=== PATIENT | female | born 1960 | race Caucasian/White ===

== ENCOUNTER 2016-09-22 06:45 | Day surgery (SDC) | payer BC ==
[~2016-09-22] VITALS: Ht 162.6 cm; Wt 71.2 kg
[~2016-09-22 06:45] MED LIST: AUGMENTIN 875 M1 TAB PO; CLARITIN 1010 MG/TAB; CLARITIN 1010 MG/TAB PO; COLACE 100100 MG/CAP; DUO-KAPS1 CAP; LORTAB 5/500 501 TAB PO; MVI; NOLVADEX20 MG PO; PROTONIX 40MG T40 MG PO
[2016-09-22 07:18] VITALS: BP 86/67; PULSE 78; TEMP 97.6
[2016-09-22] MEDS ORDERED: PRAVACHOL10 MG PO (07:34)
[2016-09-22] MEDS ORDERED: COLACE 100100 MG/CAP PO (07:36)
[2016-09-22 09:01] VITALS: BP 99/62; PULSE 67; TEMP 97.6
[2016-09-22 09:15] VITALS: BP 86/56; PULSE 68
[2016-09-22 09:30] VITALS: BP 98/63; PULSE 62
[2016-09-22 09:45] VITALS: BP 100/63; PULSE 59
[2016-09-22 11:22] VITALS: BP 91/51; PULSE 65
== END 2016-09-22 10:00 | disposition home or self-care (01) ==
LOC: SDCO 06:45
DX: Z12.11 Encounter for screening for malignant neoplasm of colon (principal); K21.9 Gastro-esophageal reflux disease without esophagitis
CPT/HCPCS: J2250; J3010; J7030

== ENCOUNTER 2017-01-25 14:59 | Emergency (ER) | payer BC ==
[~2017-01-25] VITALS: Ht 162.6 cm; Wt 61.4 kg
[~2017-01-25 14:59] MED LIST changes: +COLACE 100100 MG/CAP PO; +PRAVACHOL10 MG PO
[2017-01-25 15:02] VITALS: TEMP 97.9
[2017-01-25 15:59] LABS: BASO % 0.2 % (0.0-2.0); EOS % 0.5 % (0-4.0); GRAN # 4.7 (1.4-6.5); GRAN % 72.8 % (42.2-75.2); HEMATOCRIT 40.8 % (37.0-47.0); HEMOGLOBIN 13.7 g/dl (12.5-16.0); LYMPH # 1.3 (1.2-3.4); LYMPH % 19.8 % (20.0-51.0); MEAN CELL VOLUME 98 fl (80.0-100.0); MEAN CORPUSCULAR HEMOGLOBIN 33 pg (27.0-31.0); MEAN CORPUSCULAR HGB CONC 34 g/dl (33.0-37.0); MEAN PLATELET VOLUME 10.4 fl (7.4-10.4); MONO # 0.4 (0.1-0.6); MONO % 6.5 % (1.7-9.3); PLATELET COUNT 195 K/mm3 (130-400); RED BLOOD COUNT 4.16 M/mm3 (4.10-5.30); WHITE BLOOD COUNT 6.5 K/mm3 (4.8-10.8)
[2017-01-25 16:08] LABS: COLLECTION METHOD CLEAN CATCH
[2017-01-25 16:23] LABS: MUCOUS Present /lpf; PH 6 (5-8); SQUAMOUS EPITHELIAL None Seen /hpf; URINE APPEARANCE Clear; URINE BACTERIA None Seen /hpf; URINE BILIRUBIN Negative (NEGATIVE); URINE BLOOD Negative (NEGATIVE); URINE COLOR Yellow; URINE GLUCOSE Negative (NEGATIVE); URINE KETONE 2+ (NEGATIVE); URINE LEUKOCYTE ESTERASE Negative (NEGATIVE); URINE PROTEIN(semi-quant) Negative (NEGATIVE); URINE RBC 0-2 /hpf; URINE UROBILINOGEN Negative (NEGATIVE); URINE WBC 0-2 /hpf
[2017-01-25 16:36] LABS: ADJUSTED CALCIUM 9.1 mg/dL (8.4-10.2); ALANINE AMINOTRANSFERASE 26 U/L (9-52); ALBUMIN 4.2 gm/dL (3.5-5.0); ALKALINE PHOSPHATASE 74 U/L (50-136); ANION GAP 13 mmol/L (7-16); BILIRUBIN,TOTAL 0.6 mg/dL (0.0-1.0); BLOOD UREA NITROGEN 10 mg/dL (7-17); CALCIUM 9.3 mg/dL (8.4-10.2); CARBON DIOXIDE 20 mmol/L (22-30); CHLORIDE 106 mmol/L (98-107); CREATININE, serum 0.59 mg/dL (0.52-1.25); GLUCOSE 113 mg/dL (74-106); LIPASE 57 U/L (23-300); POTASSIUM 3.4 mmol/L (3.4-5.0); SODIUM 139 mmol/L (137-145); TOTAL PROTEIN 7.1 gm/dL (6.4-8.2)
[2017-01-25 16:39] LABS: C-REACTIVE PROTEIN < 0.5 mg/dL (0.0-0.9)
[2017-01-25 16:45] LABS: TROPONIN-I < 0.012 ng/mL (0.000-0.034)
[2017-01-25] MEDS ORDERED: PROTONIX 40MG T40 MG PO (17:03)
[2017-01-25 17:25] VITALS: BP 115/68; PULSE 76
== END 2017-01-25 17:25 | disposition home or self-care (01) ==
LOC: COL.ER 14:59
PROVIDERS: Emergency Medicine
DX: R10.9 Unspecified abdominal pain (principal); E78.5 Hyperlipidemia, unspecified; Z90.49 Acquired absence of other specified parts of digestive tract
CPT/HCPCS: J2270; J2405; J7030